=== PATIENT | male | born 1970 | race Caucasian/White ===

== ENCOUNTER 2025-08-02 09:32 | Outpatient (REF) | payer BC, SELFPAY ==
--- NOTE | ~2025-08-02 | XR_ITS ---
EXAMINATION: XR LUMBOSACRAL SPINE WITH OBLIQUES CLINICAL INFORMATION: M41.56 - Other secondary scoliosis, lumbar region COMPARISON: None available. TECHNIQUE: AP, lateral and flexion extension FINDINGS: There is mild curvature of the lumbar spine to the left. There degenerative changes with degenerative spondylosis, disc space narrowing and facet arthritis from L1 to S1. No instability on flexion and extension views. No fracture. XR/XR lumbar spine 4V min IMPRESSION: Multilevel degenerative changes. No instability on flexion-extension views. Electronically signed by: Antoinette Fuller MD 08/02/2025 11:09 AM EDT
== END 2025-08-02 09:33 | disposition home or self-care (01) ==
LOC: HO.HOSX 09:32
PROVIDERS: Visit Provider Neurological Surgery
DX: M54.50 Low back pain, unspecified (principal); M41.56 Other secondary scoliosis, lumbar region
CPT/HCPCS: 72110

== ENCOUNTER 2025-08-02 09:32 | Outpatient (AMB) | payer BC, SELFPAY ==
--- OUTSIDE RECORDS SUMMARY | 2025-08-02 10:11 | XMS_ITS | Clinical Summary ---
Author Organization [facility] [facility] [employer] Address [address] [facility] [place] [address] Care Team Providers Care Applications Analyst Name Role Phone No, Pcp AUTOMOTIVE ARTIST Primary Care Provider Unavailabl e Social History Tobacco Use Types Packs/Day Years Used Date Smoking Tobacco: Never Assessed Sex and Gender Information Value Date Recorded Sex Assigned at Not on file Legal Sex Male 4:16 PM EDT Gender Identity Not on file Sexual Orientation Not on file Plan of Treatment Health Maintenance Due Date Last Done Comments Colorectal Cancer: COLONOSCO PY Screening every 10 yrs (or Modifier) 1968 Depression: Screening Annual ly using PHQ-2/9 in Adults 18 yrs or above (or HM Modifier)([facility]) 1986 Hepatitis C Virus Infection in Adolescents and Adults: Screening (or Modifier) ([facility]) 1986 [facility] Screening Reminder: Court daley for all adults ([facility]) 1986 Tobacco Smoking Cessation: i n Adults excluding Women: Behavioral and Pharmacotherapy Interventions ([facility]) 1986 DTaP/Tdap/Td Vaccines ([facility]) (1 - Tdap) 1987 Colorectal Cancer Screening 45 -75 Yrs (or HM Modifier ) 2013 Colorectal Cancer: FLEXIBLE SIGMOIDOSCOPY Screening every 5 yrs 2013 Colorectal Cancer: Fecal Imm unochemical Test (FIT) Annually [facility] 2013 Colorectal Cancer: High-sens itivity gFOBT Screening Annually [facility] 2013 Colorectal Cancer: Stool Col oguard Screening every 3 yrs 2013 Colorectal Cancer:CT Colonography Screening every 5 yr s 2013 Pneumococcal Vaccination Scr eening: Patients 50+ yrs of age ([facility]) (1 of 1 - PCV) 2018 Zoster/Shingles Vaccine Seri es Screening: Adults aged 18+ yrs (or HM Modifiers)([facility]) (1 of 2) 2018 Flu Vaccination: Yearly for ages 18mos through 64 years (or Modifier)([facility]) 05/31/2025 COVID-19 Vaccine Screening: Initial Series and Booster Status ([facility]) (2023- season) 2025 [employer] Devices Not on file Insurance [facility] Care Teams Applications Analyst Relationship Specialty Start Date End Date No, Pcp, AUTOMOTIVE ARTIST N/A Do not use PCP - General Family Medicine 06/01/21
--- OUTSIDE RECORDS SUMMARY | 2025-08-02 10:11 | XMS_ITS | Encounter Summary ---
Author Organization [facility] Address [address] [place] [address] Care Team Providers Care Sterilization Specialist Name Role Phone Donny Liriano Primary Care Provider Encounter Details Date Type Department Care Team (Late st Contact Info) Description 09/13/2022 Telephone [facility] [address] [place] [id number] Robert Guerin MD [address] [place] [phone] Social History Tobacco Use Types Packs/Day Years Used Date Smoking Tobacco: Former Cigars Smokeless Tobacco: Former Alcohol Use Standard Drinks/Week Comments Yes 1 (1 standard drink = 0.6 oz pur e alcohol) 2 a week Sex and Gender Information Value Date Recorded Sex Assigned at Male 07/23/2022 4:05 AM EDT Legal Sex Male 4:22 PM EDT Gender Identity Male 07/23/2022 4:05 AM EDT Sexual Orientation Straight 07/23/2022 4: 05 AM EDT documented as of this encounter Miscellaneous Notes * Telephone Encounter - Luz Bonds - 09/17/2022 8:26 AM EST Hi Robert Vickers would like a call back with his monitor results. I dont see them in the system yet but he states he had a significant episode captured and wondered your thought. He can be reached at [phone], Heart station- not sure if you are able to pull anything? Lisa Cagle * Telephone Encounter - Luz Bonds - 09/13/2022 1:[address] Ardon, Robert is calling to let you know he had a episode captured on his monitor. He is stopping his monitor and would like to know your thoughts and next step for what was captured. He states there was onlythe rapid HR. He had no other symptoms involved. No Pain, No dizziness and no shortness of breath. Robert can be reached via my chart or by phone at [phone]. Lisa Cagle documented in this encounter Plan of Treatment Not on file documented as of this encounter Visit Diagnoses Not on filedocumented in this encounter Care Teams Sterilization Specialist Relationship Specialty Start Date End Date Donny Liriano PCP - General 06/22/22 documented as of this encounter
--- OUTSIDE RECORDS SUMMARY | 2025-08-02 10:11 | XMS_ITS | Clinical Summary ---
Author Organization [facility] Address [address] [place] [address] Care Team Providers Care Director Translational Name Role Phone AugustineDonny Tierney Primary Care Provider Allergies No known active allergies Medications atorvastatin (LIPITOR) 10 mg tablet 05/31/2022 Active omeprazole 20 mg tablet,disintegr at, delay rel 07/23/2022 Activ e metoprolol tartrate (LOPRESSOR) 25 mg tablet TAKE 1 TABLET BY MOUTH EVERY DAY 90 tablet 3 12/20/2023 Active Social History Tobacco Use Types Packs/Day Years Used Date Smoking Tobacco: Former Cigars Smokeless Tobacco: Former Tobacco Cessation:Counseling Given: Not Answered Alcohol Use Standard Drinks/Week Comments Yes 1 (1 standard drink = 0.6 oz pur e alcohol) 2 a week Sex and Gender Information Value Date Recorded Sex Assigned at Male 07/23/2022 4:05 AM EDT Legal Sex Male 4:22 PM EDT Gender Identity Male 07/23/2022 4:05 AM EDT Sexual Orientation Straight 07/23/2022 4: 05 AM EDT Last Filed Vital Signs Vital Sign Reading Time Taken Comments Blood Pressure 122/79 01/25/2023 10:59 AM EDT Pulse 66 01/25/2023 10:59 AM EDT Temperature - - Respiratory Rate 20 01/25/2023 10:5 9 AM EDT Oxygen Saturation 97% 01/25/2023 10: 59 AM EDT Inhaled Oxygen Concentration - - Weight 77.4 kg (170 lb 10.2 oz) 023 10:59 AM EDT Height 175.3 cm (5' 9 ) 01/25/2023 10:5 9 AM EDT Body Mass Index 25.2 01/25/2023 10:59 AM EDT Plan of Treatment Health Maintenance Due Date Last Done Comments Cologuard 1968 Colon Cancer Screening 1968 Colonoscopy 1968 FOBT / Fit Test 1968 HIV Screening 1968 Hepatitis C Screening 1968 Sigmoidoscopy 1968 Hepatitis B Vaccines (1 of 3 - 19+ 3-dose series) 1987 CT Lung Cancer Screening (Baseline) 2018 Pneumococcal Vaccine: 50+ Ye ars (1 of 1 - PCV) 2018 Zoster Vaccines (1 of 2) 2018 Alcohol/Substance Use Screening 10/31/2024 Depression Screening and Follow-Up 10/31/[address] ual Screening 10/31/2024 COVID-19 Vaccine (5 - 2024-2 6 season) 2025 08/13/2022, 08/29/2021, 02/27/2021, Additional history exists Influenza Vaccine (#1) 2025 , 08/13/2021, 08/12/2020 DTaP,Tdap,and Td Vaccines (2 - Td or Tdap) 11/10/2027 11/10/2017, 08/01/2008 RSV Vaccine (60+ years old a nd patients) (1 - 1-dose 75+ series) 2043 Insurance [facility] HMO/POS Care Teams Director Translational Relationship Specialty Start Date End Date Donny Liriano PCP - General 06/22/22
[2025-08-02 10:21] VITALS: BMI 25.1
--- NOTE | 2025-08-02 10:21 | HO.SPINEOV ---
Vital Signs 08/02/25 10:21 Height 5 ft 8 in Weight 165 lb BMI 25.1 Intake Visit Reasons: LBP Intake Note: Mr. Yost is here today c/o Low back pain. Welt Pocket Machine Operator Required: No Allergies No Known Allergies Allergy (Verified 08/02/25 10:22) Physical Exam Vital Signs: BMI result Body Mass Index 25.1 Assessment & Plan Assessment & Plan (1) Scoliosis of lumbar region due to degenerative disease of spine in adult: Code(s): M41.56 - Other secondary scoliosis, lumbar region Category: Medical Plan: Dear colleague Thank you for referring Robert Yost to the office today with a chief complaint of right-sided back pain. HPI: This 55-year-old male had a long history of back pain predominantly located on the right side. The back pain can radiates his hip down the groin intermittently. Most of the time the pain is only in the back. It can vary from 4-8/10. Rotation of the spine is worse. He can not longer play golf due to the symptoms. No weakness or numbness. The following conservative treatment options were tried without success antiinflammatories, tylenol, physician guided home exercise plan, cortisone shots PMH: SVT Medications: Metoprolol atorvastatin and omeprazole Allergies: NKDA Social history: . Nonsmoker Physical Exam: Pleasant male. Height 5'8 weight 165 lb. Today he denies any significant symptoms. This pain on palpation of the right SI joint. Straight leg raise and cross leg test produces pain in the right SI joint. Radiological Studies: MRI done at [place] on 06/10/2025 shows multilevel degenerative disc disease, most severe at L2-3, L3-4 and L4-5 causing a degenerative scoliosis in his area. Dynamic lumbar x-rays obtained today confirmed the scoliotic component in the upper lumbar region. Impression/Plan: This patient is suffering from predominantly right-sided back pain. Differential diagnosis is sacroiliitis versus facet pain. I do not think that the mild degenerative scoliosis is responsible for his symptoms. He currently is not a surgical candidate. I would advise to have injections done either facet blocks or in the SI joint. He is scheduled to see a 2nd opinion this Tuesday and will let my office know if he wants to be referred to Dr. Tyler at [facility] in [place]. Thank you for allowing me to participate in your patients care. total time spent was 50 minutes in counseling ,coordination of plan, personal review of imaging, surgical decision making and subsequent plan Bryson Ramirez MD, PhD Spine Fellowship Trained Neurosurgeon Director, [facility] Orders: Orders XR lumbar spine 4V min Today M41.56 - Other secondary scoliosis, lumbar region Coding Level of Care Code New Pt Level 4 (74770) Diagnoses Scoliosis of lumbar region due to degenerative disease of spine in adult M41.56
== END 2025-08-02 11:58 | disposition home or self-care (01) ==
LOC: HO.HNS 09:33
PROVIDERS: Visit Provider Neurological Surgery
DX: M54.50 Low back pain, unspecified (principal); M41.56 Other secondary scoliosis, lumbar region
CPT/HCPCS: 99204

== ENCOUNTER → 2025-08-02 10:56 | Outpatient (BNV) | payer BC, SELFPAY | PROVIDERS: Visit Provider Radiology Diagnostic Radiology | DX: M51.369 Other intervertebral disc degeneration, lumbar region without mention of lumbar back pain or lower extremity pain (principal); M41.56 Other secondary scoliosis, lumbar region | CPT/HCPCS: 72110 ==